=== PATIENT | female | born 1990 | race Caucasian/White ===

== ENCOUNTER → 2025-02-01 | Day surgery (SDC) | payer OTHER ==
[~2025-02-01] MED LIST: DROSPIRENONE-E1 EAC1 PO; EPHEDRINE SULFATE INJ 50 MG/ML VIAL ONE; FAMOTIDINE20 MG PO; FENTANYL CITRATE/PF 100MCG/2 ML INJ ONE; HYDROCORTISONE10 MG PO; LACTATED RINGER'S 1,000 ML ONE; LEVOTHYROXINE75 MCG PO; LIDOCAINE HCL 2% LOCAL INJ 5 ML SDV VIAL INJ ONE; MEDROL4 M2 PO; MIDAZOLAM HCL 2 MG/2 ML VIAL ONE; PROPOFOL IV EMULSION 10 MG/ML 20 ML VIAL ONE
[2025-02-01 12:51] VITALS: TEMP 97.8
[2025-02-01 13:20] VITALS: BP 119/79; PULSE 80; RESP 18; O2SAT 99
== END | disposition home or self-care (01) ==
LOC: OR 10:20
PROVIDERS: ATTEND Internal Medicine Gastroenterology
DX: K21.9 Gastro-esophageal reflux disease without esophagitis (principal); K29.70 Gastritis, unspecified, without bleeding; K52.9 Noninfective gastroenteritis and colitis, unspecified; K31.89 Other diseases of stomach and duodenum; K59.00 Constipation, unspecified; K64.8 Other hemorrhoids; D64.9 Anemia, unspecified; R63.4 Abnormal weight loss; E03.8 Other specified hypothyroidism; E03.9 Hypothyroidism, unspecified; M06.9 Rheumatoid arthritis, unspecified; M19.90 Unspecified osteoarthritis, unspecified site; Z79.899 Other long term (current) drug therapy
CPT/HCPCS: 36415; 43239; 45378; 84702; J2003; J2250; J2704; J3010; J7121